=== PATIENT | female | born 1985 | race Caucasian/White ===

== ENCOUNTER → 2016-11-06 | Outpatient (CLI) | payer OTHER ==
[~2016-11-06] MED LIST: CLON0.3T PO; DEXT25CA4 PO; GADOBUTROL 7.5 MMOL/7.5 ML VIAL IV ONE; METH1TAB7 PO; OXYB5TAB7 PO; PENT100C PO
--- NOTE | 2016-11-06 15:34 | KCIC ---
PROCEDURE MRI of the pelvis without and with contrast 11/06/2016 HISTORY Left lower quadrant abdominal pain and right-sided pelvic pain for over a year. TECHNIQUE Unenhanced T1 weighted sagittal, coronal and axial, inversion recovery coronal and sagittal and T2 weighted sagittal and axial images of the pelvis were obtained. After the intravenous administration of 7 cc of Gadavist, enhanced fat saturated T1 weighted sagittal, coronal and axial images of the pelvis FINDINGS Comparison study is dated 04/29/2016. The uterus is within normal limits in position and signal characteristics. A 1.7 centimeter dominant follicle is seen involving the right ovary.The left ovary is within normal limits. No adnexal mass is seen. No free fluid is noted. No abnormal pelvic mass is seen. The rectum and urinary bladder are within normal limits. No area of abnormal contrast enhancement is seen. The marrow signal of the visualized bony structures is within normal limits. IMPRESSION Negative study. Electronically signed by: Min Valdovinos MD (November 06, 2016 15:33:30)
== END | disposition home or self-care (01) ==
LOC: KCIC MRI 11:30
PROVIDERS: ATTEND Nurse Practitioner Family
DX: R10.32 Left lower quadrant pain (principal); R10.2 Pelvic and perineal pain
CPT/HCPCS: 72197; A9585